=== PATIENT | male | born 1990 | race Caucasian/White ===

== ENCOUNTER 2023-05-13 08:47 | Outpatient (AMB) | payer OTHER, SELFPAY ==
--- NOTE | 2023-05-13 08:48 | MHC.OFFWIV ---
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 Denies fevers, chills, nausea or vomiting. PFSH Social History Patient Tobacco Use Status: Never used Tobacco Review of Systems Const All systems reviewed & are unremarkable except as noted in HPI and below Physical Exam Vital Signs: Last Vital Signs Temp 97.9 F 05/13/23 08:49 Pulse 102 H 05/13/23 08:49 BP 120/68 05/13/23 08:49 Pulse Ox 97 05/13/23 08:49 Oxygen Delivery Method Room Air 05/13/23 08:49 BMI result Body Mass Index 48.8 Const General: comfortable and no acute distress Nutritional Appearance: obese Orientation/consciousness: patient oriented x3 HEENT Head: Yes normocephalic Ears: external ears normal and TM's normal bilaterally General nose exam: Abnormal mucous membranes and turbinates present boggy and erythematous and Nasal discharge present Face and sinus: Yes sinuses nontender Mouth: moist mucous membranes Throat: Yes posterior oropharynx normal Resp Effort & Inspection: normal respiratory effort and able to speak in complete sentences Auscultation: clear to auscultation bilaterally, no crackles, no rales, no rhonchi and no wheezes Cardio Rate: regular rate Rhythm: regular rhythm Neuro General: patient oriented x3 Assessment & Plan Assessment & Plan (1) Acute rhinosinusitis: Code(s): J01.90 - Acute sinusitis, unspecified Plan: - OTC cold/flu remedies - Rest and hydrate with warm fluids and honey - Acetaminophen for pain relief. Orders: Orders SARS-CoV2/FLU/RSV Today J01.90 - Acute sinusitis, unspecified Coding Level of Care Code New Pt Level 3 (12821) Diagnoses Acute rhinosinusitis J01.90 Time Spent (min) 15
[2023-05-13 08:49] VITALS: BP 120/68; PULSE 102; TEMP 36.6; O2SAT 97; BMI 48.8
== END 2023-05-13 11:01 | disposition home or self-care (01) ==
PROVIDERS: PCP Internal Medicine; Visit Provider Nurse Practitioner Family
DX: J01.90 Acute sinusitis, unspecified (principal)
CPT/HCPCS: 99203

== ENCOUNTER 2023-05-13 09:08 | Outpatient (REF) | payer OTHER, SELFPAY ==
[2023-05-13 11:29] LABS: Influenza A PCR NEGATIVE (Negative); Influenza B PCR NEGATIVE (Negative); Resp Syncy Virus RNA Qual PCR NEGATIVE (Negative); SARS COV2 PCR INHOUSE POSITIVE (Negative)
== END 2023-05-13 09:09 | disposition home or self-care (01) ==
LOC: HO.LAB 09:08
PROVIDERS: Visit Provider Nurse Practitioner Family
DX: J01.90 Acute sinusitis, unspecified (principal)
CPT/HCPCS: 0241U

== ENCOUNTER 2024-01-20 11:24 | Outpatient (REF) | payer OTHER, SELFPAY ==
[2024-01-20 16:08] LABS: Influenza A PCR NEGATIVE (Negative); Influenza B PCR NEGATIVE (Negative); Resp Syncy Virus RNA Qual PCR NEGATIVE (Negative); SARS COV2 PCR INHOUSE NEGATIVE (Negative)
== END 2024-01-20 11:25 | disposition home or self-care (01) ==
LOC: HO.LAB 11:24
PROVIDERS: Nurse Practitioner Family; PCP Internal Medicine
DX: J06.9 Acute upper respiratory infection, unspecified (principal); R09.89 Other specified symptoms and signs involving the circulatory and respiratory systems
CPT/HCPCS: 0241U; 87880

== ENCOUNTER 2024-01-20 11:24 | Outpatient (AMB) | payer OTHER, SELFPAY ==
--- NOTE | 2024-01-20 11:27 | MHC.OFFWIV ---
Intake Vital Signs 01/20/24 11:28 Height 5 ft 10 in Weight 340 lb BMI 48.8 BP 128/80 Blood Pressure Location Lt brachial Position Sitting Pulse 78 Pulse Source Pulse Oximeter Temp 97.8 F Temp Source Oral Pulse Oximetry (%) 98 Intake Visit Reasons: EP-sore throat, rt eye pain, stuffy nose Intake Note: pt is here for sore throat, right eye pain, stuffy nose Patient Tobacco Use Status: Never used Tobacco Allergies No Known Allergies [No Known Allergies*] Allergy (Verified 05/13/23 08:49) Do you need a note to return to daycare/school/sports/work: No HPI HPI Comments History of Present Illness Details 33 y/o male patient who presents to the walk in clinic with c/o URI symptoms for few days now. Reports nasal congestion, chest congestion and body aches. PFSH Social History Patient Tobacco Use Status: Never used Tobacco Review of Systems Const All systems reviewed & are unremarkable except as noted in HPI and below Physical Exam Vital Signs: Last Vital Signs Temp 97.8 F 01/20/24 11:28 Pulse 78 01/20/24 11:28 BP 128/80 01/20/24 11:28 Pulse Ox 98 01/20/24 11:28 BMI result Body Mass Index 48.8 Const General: cooperative and no acute distress Nutritional Appearance: obese Orientation/consciousness: patient oriented x3 HEENT Head: Yes normocephalic Ears: external ears normal and TM abnormal with fluid behind the TM Face and sinus: Yes sinuses nontender Mouth: moist mucous membranes Throat: Yes uvula midline Resp Effort & Inspection: normal respiratory effort and able to speak in complete sentences Auscultation: clear to auscultation bilaterally, no crackles, no rales, no rhonchi and no wheezes Cardio Heart sounds: S1 normal heart sound present and S2 normal heart sound present Neuro General: patient oriented x3 Assessment & Plan Assessment & Plan (1) Acute respiratory disease: Code(s): J06.9 - Acute upper respiratory infection, unspecified Plan: Ordered SARs OTC cold remedies Rest, hydrate with warm fluids Acetaminophen or NSAIDs for pain relief. Orders: Orders AMB Rapid Strep Screen Today Z13.9 - Encounter for screening, unspecified SARS-CoV2/FLU/RSV Today R09.89 - Other specified symptoms and signs involving the circulatory and respiratory systems Coding Level of Care Code Est Pt Level 3 (31157) Diagnoses Acute respiratory disease J06.9 Time Spent (min) 15
[2024-01-20 11:28] VITALS: BP 128/80; PULSE 78; TEMP 36.6; O2SAT 98; BMI 48.8
== END 2024-01-20 12:49 | disposition home or self-care (01) ==
PROVIDERS: PCP Internal Medicine; Visit Provider Nurse Practitioner Family
DX: J06.9 Acute upper respiratory infection, unspecified (principal); Z13.9 Encounter for screening, unspecified

== ENCOUNTER 2024-03-05 12:04 | Outpatient (AMB) | payer OTHER, SELFPAY ==
[2024-03-05 13:50] VITALS: BP 140/90; PULSE 101; TEMP 37; O2SAT 98
--- NOTE | 2024-03-05 13:50 | AM.OFFWIN_ITS ---
Intake Vital Signs 03/05/24 13:50 Weight 345 lb BP 140/90 H Blood Pressure Location Lt brachial Position Sitting Pulse 101 H Pulse Source Pulse Oximeter Temp 98.6 F Temp Source Oral Pulse Oximetry (%) 98 Oxygen Delivery Method Room Air Intake Visit Reasons: EP-sore throat [phone] Intake Note: Patient here for sore throat, body aches, fevers which started over the weekend. Patient Tobacco Use Status: Never used Tobacco Allergies No Known Allergies [No Known Allergies*] Allergy (Verified 03/05/24 13:51) Do you need a note to return to daycare/school/sports/work: Yes HPI HPI Comments History of Present Illness Details History - The patient is a 33-year-old male pres enting with a sore throat and right ear pain. - Onset of symptoms was reported as last night, with persistent fever and body aches noted. - Fever peaked at 101.2?F, with body ach es subsiding during the morning. - The patient described a sore throat wi th visible white lenz at the tonsils - There is minimal cough, but pain is no table upon swallowing. - Mild, aching ear pain is reported in t he right ear, with noticeable tenderness. - Interaction with family members having similar cough symptoms was noted, though no confirmed strep throat history in contacts. Physical Exam General: Cooperative, healthy appearing, comfortable and no acute distress Orientation/consciousness: Patient oriented x3 Limitations: No limitations Head: Normal to inspection Ears: Hearing grossly normal bilaterally, external ears normal. Right TM erythema, purulent effusion. Left TM normal Nose: Normal external nose present, Normal nares present and No nasal discharge present Face and sinus: Normal facial exam and Yes sinuses nontender Mouth: Normal oral and palatal mucosa present and moist mucous membranes Throat: Yes tonsils normal, Yes uvula midline. Posterior oropharynx erythema w/exudates noted on right side Eyes: Appearance normal, both eyes and all related structures Neck: Tenderness present in the neck Respiratory: Normal respiratory effort, able to speak in complete sentences, minimal coughing, no respiratory distress, not tachypneic, no tripod positioning and no use of accessory muscles Skin: No rashes or lesions noted Neuro: Patient oriented x3 Extremities: Normal to inspection and Yes no clubbing, cyanosis or edema PFSH Social History Patient Tobacco Use Status: Never used Tobacco Review of Systems Const All systems reviewed & are unremarkable except as noted in HPI and below Physical Exam Vital Signs: Last Vital Signs Temp 98.6 F 03/05/24 13:50 Pulse 101 H 03/05/24 13:50 BP 140/90 H 03/05/24 13:50 Pulse Ox 98 03/05/24 13:50 Oxygen Delivery Method Room Air 03/05/24 13:50 Assessment & Plan Assessment & Plan (1) Acute streptococcal pharyngitis: Code(s): J02.0 - Streptococcal pharyngitis Plan: Centor criteria 3, 28-35% probability of strep. PE revealed exudates. The diagnosis of streptococcal pharyngitis and right-sided acute otitis media can both be treated with amoxicillin every 12 hours for a 10-day course. Patient education included warnings about the contagious nature of streptococcal infection, stressing the importance of not sharing utensils or engaging in close oral contact. Family members showing similar symptoms should be clinically evaluated. The patient is advised that while initial relief might not be immediate, significant improvement should be noted after three days of antibiotic therapy. Instructions for pain management and further restrictions were provided to minimize symptom exacerbation and prevent spread. Patient was informed and verbally consented to the use of an ambient scribe for clinic note documentation during this visit (2) Otitis media, right: Code(s): H66.91 - Otitis media, unspecified, right ear Qualifiers: Otitis media type: suppurative Chronicity: acute Recurrence: non- recurrent Spontaneous tympanic membrane rupture: without spontaneous rupture Qualified Code(s): H66.001 - Acute suppurative otitis media without spontaneous rupture of ear drum, right ear Plan: as above Medications: New amoxicillin 500 mg PO Q12H 20 tabs 0RF Coding Level of Care Code New Pt Level 4 (30965) Diagnoses Acute streptococcal pharyngitis J02.0 Non-recurrent acute suppurative otitis media of right ear without spontaneous rupture of tympanic membrane H66.001 Otitis media type: suppurative Chronicity: acute Recurrence: non-recurrent Spontaneous tympanic membrane rupture: without spontaneous rupture
== END 2024-03-05 14:16 | disposition home or self-care (01) ==
PROVIDERS: PCP Internal Medicine; Visit Provider Physician Assistant
DX: J02.0 Streptococcal pharyngitis (principal); H66.001 Acute suppurative otitis media without spontaneous rupture of ear drum, right ear; Z13.9 Encounter for screening, unspecified

== ENCOUNTER → 2024-03-05 12:04 | Outpatient (BNVA) | payer OTHER, SELFPAY | PROVIDERS: PCP Internal Medicine; Visit Provider Physician Assistant | DX: J02.0 Streptococcal pharyngitis (principal); H66.001 Acute suppurative otitis media without spontaneous rupture of ear drum, right ear | CPT/HCPCS: 87880 ==

== ENCOUNTER 2024-04-10 11:14 | Outpatient (AMB) | payer OTHER, SELFPAY ==
[2024-04-10 11:37] VITALS: BP 130/80; PULSE 88; TEMP 36.8; O2SAT 98
--- NOTE | 2024-04-10 11:37 | AM.OFFWIN_ITS ---
Intake Vital Signs 04/10/24 11:37 Weight 345 lb BP 130/80 Blood Pressure Location Lt brachial Position Sitting Pulse 88 Pulse Source Pulse Oximeter Temp 98.3 F Temp Source Oral Pulse Oximetry (%) 98 Oxygen Delivery Method Room Air Intake Visit Reasons: EP-cough out blood, Intake Note: Patient here because he has been coughing up yellow mucus a couple of days ago and has noticed some blood in mucus that started the last two days. Patient Tobacco Use Status: Never used Tobacco Allergies No Known Allergies [No Known Allergies*] Allergy (Verified 04/10/24 11:41) Do you need a note to return to daycare/school/sports/work: Yes HPI HPI Comments History of Present Illness Details History - The patient is a 33-year-old male pres enting with a persistent cough with sputum production and associated blood traces in the sputum. - A history of initial improvement after antibiotic treatment for suspected strep throat, followed by recurrent symptoms starting March 26 with fever, body aches, and an upper respiratory condition. - There is a report of sputum initially being thick and dark green, transitioning to bright yellow, and occasionally blood-tinged. - An isolated incident of hacking up pur e blood through the nasal passage was noted, alongside household members experiencing similar symptoms, raising concerns about possible pneumonia. - Experiencing night coughs that have re cently lessened in intensity; no significant dyspnea observed, though congestion is present. - Physical Exam General: Cooperative, healthy appearing, comfortable and no acute distress Orientation/consciousness: Patient oriented x3 Limitations: No limitations Head: Normal to inspection Ears: Hearing grossly normal bilaterally, external ears normal and TM's normal bilaterally Nose: Normal external nose present, Normal nares present and No nasal discharge present Face and sinus: Normal facial exam and Yes sinuses nontender Mouth: Normal oral and palatal mucosa present and moist mucous membranes Throat: Yes tonsils normal, Yes uvula midline. Posterior oropharynx erythema Eyes: Appearance normal, both eyes and all related structures Neck: Normal visual inspection Respiratory: Clear to auscultation bilaterally. Normal respiratory effort, able to speak in complete sentences, Actively coughing, no respiratory distress, not tachypneic, no tripod positioning and no use of accessory muscles Cardiovascular: Regular rate and rhythm. Normal S1 and S2 Skin: No rashes or lesions noted Neuro: Patient oriented x3 Extremities: Normal to inspection and Yes no clubbing, cyanosis or edema PFSH Social History Patient Tobacco Use Status: Never used Tobacco Review of Systems Const All systems reviewed & are unremarkable except as noted in HPI and below Physical Exam Vital Signs: Last Vital Signs Temp 98.3 F 04/10/24 11:37 Pulse 88 04/10/24 11:37 BP 130/80 04/10/24 11:37 Pulse Ox 98 04/10/24 11:37 Oxygen Delivery Method Room Air 04/10/24 11:37 Assessment & Plan Assessment & Plan (1) URI, acute: Code(s): J06.9 - Acute upper respiratory infection, unspecified Plan: The cough with blood-tinged sputum appeared to be due to respiratory tract irritation and dryness rather than a more severe condition such as pneumonia. Suspecting an upper respiratory infection, it was advised to start using a humidifier at night and saline nasal sprays to maintain airway and nasal moisture. Direct hacking up of blood was notably a singular incident and is expected to resolve. 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 Recommended picking a PCP who is local to establish care [facility]ILL[facility]. Plan Patient was informed and verbally consented to the use of an ambient scribe for clinic note documentation during this visit Medications: New azithromycin For 250 mg dose pack: take 500 mg today (day 1), then 250 mg for 4 days (days 2-5) PO 6 tabs 0RF Coding Level of Care Code New Pt Level 3 (51727) Diagnoses URI, acute J06.9
== END 2024-04-10 11:59 | disposition home or self-care (01) ==
PROVIDERS: PCP Internal Medicine; Visit Provider Physician Assistant
DX: J06.9 Acute upper respiratory infection, unspecified (principal)

== ENCOUNTER 2024-11-08 13:29 | Outpatient (AMB) | payer OTHER, SELFPAY ==
[2024-11-08 13:44] VITALS: BP 132/78; PULSE 107; TEMP 37.1; O2SAT 97; BMI 48.6
--- NOTE | 2024-11-08 13:44 | AM.OFFWIN_ITS ---
Intake Vital Signs 11/08/24 13:44 Height 5 ft 10 in Weight 339 lb BMI 48.6 BP 132/78 Blood Pressure Location Lt brachial Position Sitting Pulse 107 H Pulse Source Pulse Oximeter Temp 98.7 F Temp Source Oral Pulse Oximetry (%) 97 Oxygen Delivery Method Room Air Intake Visit Reasons: ep swollen lymph nodes ? Intake Note: pt presents with swelling to throat glands beginning a little over a month ago, denies any sinus or tonsil involvement Patient Tobacco Use Status: Never used Tobacco Allergies No Known Allergies (No Known Allergies*) Allergy (Verified 11/08/24 13:51) Do you need a note to return to daycare/school/sports/work: Yes HPI HPI Comments History of Present Illness Details 34 y/o Male patient who presents to the walk in clinic with c/o Swollen and tender Cervical Lymph nodes under left sided Neck since September. He also reports Sore-throat. He does have some Dental cavities and has Appointment with Dentist next week . Reports recent COVID infection (10/12) while he was vacationing in [place]. Denies Fevers, chills, nausea or vomiting. Denies Cough, CP or wheezing. He does have PCP located in [facility] - planning to relocate to [place]. [facility] Medical History (Updated 11/08/24 @ 14:27 by Wanda Cohen NP) Acute pharyngitis Social History Patient Tobacco Use Status: Never used Tobacco Review of Systems Const All systems reviewed & are unremarkable except as noted in HPI and below Physical Exam Vital Signs: Last Vital Signs Temp 98.7 F 11/08/24 13:44 Pulse 107 H 11/08/24 13:44 BP 132/78 11/08/24 13:44 Pulse Ox 97 11/08/24 13:44 Oxygen Delivery Method Room Air 11/08/24 13:44 BMI result Body Mass Index 48.6 Const General: comfortable and no acute distress Nutritional Appearance: obese morbidly obese Orientation/consciousness: patient oriented x3 HEENT Head: Yes normocephalic Ears: external ears normal and TM abnormal bulging bilateral and with fluid behind the TM bilateral; not perforated and not retracted General nose exam: Normal external nose present and No nasal discharge present Face and sinus: Yes sinuses nontender Mouth: tongue normal, moist mucous membranes and Abnormal oral and palatal mucosa present erythematous Teeth and gingiva: gingiva normal, caries and poor dentition Throat: Yes tonsils normal, Yes uvula midline and No peritonsillar mass Neck Neck: Yes normal visual inspection, Yes full ROM and Yes trachea midline Thyroid: Thyroid normal and nontender Lymphatic: lymphadenopathy (Left Submandibular Lymph nodes. ) Resp Effort & Inspection: normal respiratory effort and no cough Auscultation: clear to auscultation bilaterally, no crackles, no rales, no rhonchi and no wheezes Cardio Rate: regular rate Heart sounds: S1 normal heart sound present and S2 normal heart sound present Neuro General: patient oriented x3, gait normal and moves all extremities Psych Speech and movement: Normal speech and movement present Assessment & Plan Assessment & Plan (1) Acute pharyngitis: Code(s): J02.9 - Acute pharyngitis, unspecified Qualifiers: Pharyngitis/tonsillitis etiology: unspecified etiology Qualified Code(s): J02.9 - Acute pharyngitis, unspecified Plan: He does have Cervical Lymphadenopathy - prob due to his Dental Caries. He has an appointment with His Dentist - he follow up with them NSAIDs for pain relief. Rapid Strep negative. Coding Level of Care Code Est Pt Level 4 (20308) Diagnoses Acute pharyngitis, unspecified etiology J02.9 Pharyngitis/tonsillitis etiology: unspecified etiology Time Spent (min) 20
== END 2024-11-08 14:26 | disposition home or self-care (01) ==
PROVIDERS: PCP Internal Medicine; Visit Provider Nurse Practitioner Family
DX: Z13.9 Encounter for screening, unspecified (principal); J02.9 Acute pharyngitis, unspecified

== ENCOUNTER → 2024-11-08 13:29 | Outpatient (BNVA) | payer OTHER, SELFPAY | PROVIDERS: PCP Internal Medicine; Visit Provider Nurse Practitioner Family | DX: J02.9 Acute pharyngitis, unspecified (principal); R59.0 Localized enlarged lymph nodes | CPT/HCPCS: 87880 ==

== ENCOUNTER 2025-01-14 11:23 | Outpatient (REF) | payer OTHER, SELFPAY ==
[2025-01-14 17:01] LABS: Resp Syncy Virus RNA Qual PCR NEGATIVE (Negative); SARS COV2 PCR INHOUSE NEGATIVE (Negative)
== END 2025-01-14 11:24 | disposition home or self-care (01) ==
LOC: CF 11:23
PROVIDERS: PCP Internal Medicine; Visit Provider Physician Assistant Medical
DX: J06.9 Acute upper respiratory infection, unspecified (principal)
CPT/HCPCS: 87637

== ENCOUNTER 2025-01-14 11:23 | Outpatient (AMB) | payer OTHER, SELFPAY ==
--- NOTE | 2025-01-14 12:05 | MHC.OFFWIV ---
Intake Vital Signs 01/14/25 12:06 Height 5 ft 10 in Weight 249 lb BMI 35.7 BP 132/70 Blood Pressure Location Lt brachial Position Sitting Pulse 86 Pulse Source Pulse Oximeter Temp 98.1 F Temp Source Oral Pulse Oximetry (%) 98 Oxygen Delivery Method Room Air Intake Visit Reasons: EP-sinus congestion, sore throat, cough Intake Note: Patient presents c/o cough-green phlegm, itchy throat, chest congestion, nasal congestion x3 days Patient Tobacco Use Status: Never used Tobacco Allergies No Known Allergies (No Known Allergies*) Allergy (Verified 01/14/25 12:08) Do you need a note to return to daycare/school/sports/work: Yes HPI HPI Comments History of Present Illness Details History - The patient is a 34-year-old male presenting with symptoms suggestive of an upper respiratory tract infection. - Symptoms began on Tuesday with an itchy throat, progressing to cough and nasal congestion by Tuesday night. - The patient reports coughing up green sputum and experiencing chest discomfort, particularly when coughing. - No confirmed fever, but the patient felt feverish last night without a thermometer to confirm. - The patient has been using [id number]-[id number] medications such as DayQuil and NyQuil for symptom relief. - No history of asthma or other chronic respiratory conditions. - Previous evaluation of lymphadenopathy included a CT scan of the neck, revealing a tonsil stone but no other abnormalities.] - He has no sick contacts, travel, smoking, or asthma history. - He denies fever, chills, CP, SOB, abd pain, n/v/d. Physical Exam General: Cooperative, healthy appearing, comfortable and no acute distress Orientation/consciousness: Patient oriented x3 Limitations: No limitations Head: Normal to inspection Ears: Hearing grossly normal bilaterally, external ears normal and TM's normal bilaterally Nose: Normal external nose present, normal nares present, and no nasal discharge present. Face and sinus: Sinuses nontender to palpation. Mouth: Normal oral and palatal mucosa present and moist mucous membranes noted. Throat: Tonsils normal. Uvula is midline. Posterior oropharynx with erythema and no exudates. Eyes: Appearance normal, both eyes and all related structures Neck: Normal visual inspection, full ROM. No lymphadenopathy noted. Respiratory: Clear to auscultation bilaterally. Normal respiratory effort, able to speak in complete sentences. No respiratory distress, not tachypneic, no tripod positioning and no use of accessory muscles. Cardiovascular: Regular rate and rhythm. Normal S1 and S2 Skin: No rashes or lesions noted Patient was informed and verbally consented to the use of an ambient scribe for clinic note documentation during this visit [facility] Medical History (Updated 11/08/24 @ 14:27 by Wanda Cohen NP) Acute pharyngitis Social History Patient Tobacco Use Status: Never used Tobacco Review of Systems Const All systems reviewed & are unremarkable except as noted in HPI and below Physical Exam Vital Signs: Last Vital Signs Temp 98.1 F 01/14/25 12:06 Pulse 86 01/14/25 12:06 BP 132/70 01/14/25 12:06 Pulse Ox 98 01/14/25 12:06 Oxygen Delivery Method Room Air 01/14/25 12:06 BMI result Body Mass Index 35.7 Assessment & Plan Assessment & Plan (1) URI with cough and congestion: Code(s): J06.9 - Acute upper respiratory infection, unspecified Plan Most likely URI vs covid vs flu vs RSV plan - Prescribed inhaler, cough medicine, and decongestant for symptom management. - COVID-19, Influenza, and RSV testing conducted to rule out viral infections. - Advised rest and symptomatic treatment with pikf-yex-pejzsal medications. - drink lots of fluids and diet as tolerated - will call with the results - will give a work note - follow up with PCP Orders: Orders SARS-CoV2/FLU/RSV Today R09.89 - Other specified symptoms and signs involving the circulatory and respiratory systems Medications: New benzonatate 100 mg PO bid-tid PRN 21 caps 0RF Cough 7 days cetirizine-pseudoephedrine 5-120 mg ER 1 tab PO BID 14 tabs 0RF 7 days albuterol sulfate 90 mcg/actuation 2 puffs inhalation Q6H PRN 8.5 grams 0RF shortness of breath or wheezing or cough Coding Level of Care Code Est Pt Level 3 (37281) Diagnoses URI with cough and congestion J06.9
[2025-01-14 12:06] VITALS: BP 132/70; PULSE 86; TEMP 36.7; O2SAT 98; BMI 35.7
== END 2025-01-14 13:29 | disposition home or self-care (01) ==
PROVIDERS: PCP Internal Medicine; Visit Provider Physician Assistant Medical
DX: J06.9 Acute upper respiratory infection, unspecified (principal)